=== PATIENT | male | born 1945 | race Caucasian/White ===

== ENCOUNTER 2019-12-28 19:00 | Emergency (ER) | payer MEDICARE ==
--- NOTE | 2019-12-28 20:49 | EDM.PDOC ---
ED HPI GENERAL MEDICAL PROBLEM - General Chief Complaint: Respiratory Problem Stated Complaint: S.O.B. Time Seen by Provider: 12/28/19 19:30 Source of Information: Reports: Patient, Old Records, RN Notes Reviewed History Limitations: Reports: No Limitations - History of Present Illness INITIAL COMMENTS - FREE TEXT/NARRATIVE: 74-year-old gentleman presents emergency department a complaint of difficulty breathing difficulty swallowing progressive weakness and fatigue. He has been dealing with this for 3 months started back in September has been evaluated by his primary care please see epic record for details of all the lab work that has been done the most remarkable finding is an RESHMA is positive at 6 sed rate is at 55 CRP also elevated at 6 CT scan of the chest shows groundglass opacities consistent with a pneumonitis. He has had COVID testing done tick panel testing done has initiated course of doxycycline pending results of tick panel this was subsequently stopped when the tick panel was negative. He lives alone up near [facility] he states his temperature has been averaging around 100 he has had some sputum production with a chronic cough no chest pain no nausea vomiting no other GI symptomology. He is also noticed some plaque-like lesions on the dorsal surface of both hands as well as faint redness around the eyes, complains of proximal muscle weakness difficulty getting out of a chair raising his arms above his head Generalized Pain Score (Numeric/FACES): 4 - Related Data Allergies Allergy/AdvReac Type Severity Reaction Status Date / Time No Known Allergies Allergy Verified 12/28/19 19:11 Home Meds: Home Meds Bimatoprost [Lumigan 0.03% Ophth Soln] 1 drop EYEBOTH BEDTIME 06/21/13 [History] Omeprazole 40 mg PO DAILY 03/19/18 [History] Naproxen Sodium [Aleve] 220 mg PO TID PRN 12/28/19 [History] traMADol [Ultram] 50 mg PO Q8HR PRN 12/28/19 [History] Past Medical History HEENT History: Reports: Impaired Vision Gastrointestinal History: Reports: GERD - Past Surgical History HEENT Surgical History: Reports: Tonsillectomy Social & Family History - Tobacco Use Smoking Status *Q: Never Smoker ED ROS GENERAL - Review of Systems Review Of Systems: See Below Constitutional: Reports: Fever, Chills, Weakness, Fatigue HEENT: Reports: Other (Difficulty swallowing) Respiratory: Reports: Shortness of Breath, Cough, Sputum Cardiovascular: Reports: Dyspnea on Exertion (Cannot do a flight of stairs before stopping and resting) GI/Abdominal: Reports: No Symptoms : Reports: No Symptoms Musculoskeletal: Reports: Joint Pain, Muscle Pain Skin: Reports: Lesions (Backs of hands) Neurological: Reports: No Symptoms ED EXAM, GENERAL - Physical Exam Exam: See Below Exam Limited By: No Limitations General Appearance: Alert, WD/WN, No Apparent Distress Respiratory/Chest: No Respiratory Distress Skin Exam: Other (?Gottron's papules dorsal surface hands) Course - Vital Signs Last Recorded V/S: Last Vital Signs Temp 98.6 F 12/28/19 19:22 Pulse 99 12/28/19 19:59 Resp 15 12/28/19 19:59 BP 144/78 H 12/28/19 19:59 Pulse Ox 100 12/28/19 19:22 - Orders/Labs/Meds Orders: Active Orders 24 hr Category Date Time Status Peripheral IV Care [RC] . DIRECTED Care 12/28/19 20:39 Ordered Sodium Chloride 0.9% [Saline Flush] Med 12/28/19 20:39 Ordered 10 ml FLUSH ASDIRECTED PRN Peripheral IV Insertion Adult [OM.PC] Urgent Oth 12/28/19 20:39 Ordered Medication Orders Sodium Chloride (Saline Flush) 10 ml FLUSH ASDIRECTED PRN PRN Reason: Keep Vein Open Meds: Medications Generic Name Dose Route Start Last Admin Trade Name Freq PRN Reason Stop Dose Admin Sodium Chloride 10 ml 12/28/19 20:39 Saline Flush FLUSH ASDIRECTED PRN Keep Vein Open Discontinued Medications Generic Name Dose Route Start Last Admin Trade Name Freq PRN Reason Stop Dose Admin Methylprednisolone Sodium Succinate 125 mg 12/28/19 20:39 Solu-Medrol IVPUSH 12/28/19 20:40 ONETIME ONE Departure - Departure Time of Disposition: 20:52 Disposition: DC/Tfer to Acute Hospital 02 Condition: Fair Clinical Impression: Proximal muscle weakness Dyspnea Qualifiers: Dyspnea type: shortness of breath Qualified Code(s): R06.02 - Shortness of breath; R06.00 - Dyspnea, unspecified; R06.01 - Orthopnea Dysphagia Qualifiers: Dysphagia type: unspecified Qualified Code(s): R13.10 - Dysphagia, unspecified - Discharge Information Referrals: Michael Lee MD [Primary Care Provider] - Sepsis Event Note (ED) - Evaluation Sepsis Screening Result: Possible Sepsis Risk - Focused Exam Vital Signs: Vital Signs Temp Pulse Resp BP Pulse Ox 12/28/19 19:59 99 15 144/78 H 12/28/19 19:22 98.6 F 105 H 22 H 160/78 H 100 12/28/19 19:18 98.6 F 1 L - My Orders Last 24 Hours: My Active Orders 12/28/19 20:39 Peripheral IV Care [RC] . DIRECTED Sodium Chloride 0.9% [Saline Flush] 10 ml FLUSH ASDIRECTED PRN Peripheral IV Insertion Adult [OM.PC] Urgent - Assessment/Plan Last 24 Hours: My Active Orders 12/28/19 20:39 Peripheral IV Care [RC] . DIRECTED Sodium Chloride 0.9% [Saline Flush] 10 ml FLUSH ASDIRECTED PRN Peripheral IV Insertion Adult [OM.PC] Urgent Plan: Assessment Acuity = acute Site and laterality = dyspnea with dysphagia with proximal muscle weakness Etiology = suspicious for underlying autoimmune disorder suspicious for dermatomyositis Manifestations = none Location of injury = Home Lab values = none Plan Call discussed case Dr. Maxwell emergency room physician at 2039 he kindly accept the patient in transport will be transported via EMS ground for further evaluation This note was dictated using [employer] voice recognition software please call with any questions on syntax or grammar.
[2019-12-28] MEDS: methylPREDNISolone Sodium Succinate 125 MG/2 ML SDV IVPUSH ONE (20:55)
[2019-12-28] MEDS: Sodium Chloride 0.9% 10 ML Syringe FLUSH PRN (20:56)
== END 2019-12-28 21:40 ==
LOC: JP.ED 19:00
DX: R06.02 Shortness of breath (principal); R06.01 Orthopnea; R13.10 Dysphagia, unspecified; M62.81 Muscle weakness (generalized); K21.9 Gastro-esophageal reflux disease without esophagitis; Z79.899 Other long term (current) drug therapy
CPT/HCPCS: 96374; 99285; J2930

== ENCOUNTER 2020-02-05 09:59 | Emergency (ER) | payer MEDICARE ==
--- NOTE | 2020-02-05 11:43 | EDM.PDOC ---
ED HPI GENERAL MEDICAL PROBLEM - General Chief Complaint: Gastrointestinal Problem Stated Complaint: CONSTIPATION, POSSIBLE LOW FLUIDS Time Seen by Provider: 02/05/20 11:43 Source of Information: Reports: Patient, Family, RN Notes Reviewed History Limitations: Reports: No Limitations - History of Present Illness INITIAL COMMENTS - FREE TEXT/NARRATIVE: Pedro presents today with complaints of constipation for 7 days. He has recently been diagnosed with pancreatic cancer and is undergoing chemotherapy. He has not had a good BM for 7 days. He reports liquid stools with occasional small hard bits of stool. He has taken stool softeners BID, tried use of dulcolax last night with prune juice. He reports he was instructed to avoid use of suppositories to avoid possible infection while under going chemotherapy. He reports abdominal pain with constipation. He denies fever, chills, nausea, vomiting or other concerns. Port in place. - Related Data Allergies Allergy/AdvReac Type Severity Reaction Status Date / Time No Known Allergies Allergy Verified 02/05/20 11:29 Home Meds: Home Meds Bimatoprost [Lumigan 0.03% Ophth Soln] 1 drop EYEBOTH BEDTIME 06/21/13 [History] Omeprazole 40 mg PO DAILY 03/19/18 [History] oxyCODONE 1 tab PO Q4HR 02/05/20 [History] predniSONE [Prednisone] 1 tab PO BID 02/05/20 [History] Past Medical History HEENT History: Reports: Impaired Vision Gastrointestinal History: Reports: GERD Oncologic (Cancer) History: Reports: Pancreatic Other Oncologic History: on chemo - Past Surgical History HEENT Surgical History: Reports: Tonsillectomy Social & Family History - Tobacco Use Tobacco Use Status *Q: Never Tobacco User ED ROS GENERAL - Review of Systems Review Of Systems: See Below Constitutional: Reports: Weakness HEENT: Reports: No Symptoms Respiratory: Reports: No Symptoms Cardiovascular: Reports: No Symptoms Endocrine: Reports: No Symptoms GI/Abdominal: Reports: Abdominal Pain, Constipation, Diarrhea, Decreased Appetite, Stool Incontinence (small amount of leaking liquid stool), Other (hemorrhoid). Denies: Bloody Stool, Hematemesis, Hematochezia, Nausea, Vomiting : Reports: No Symptoms Musculoskeletal: Reports: No Symptoms Skin: Reports: No Symptoms Neurological: Reports: No Symptoms Psychiatric: Reports: No Symptoms Hematologic/Lymphatic: Reports: No Symptoms ED EXAM, GI/ABD - Physical Exam Exam: See Below Exam Limited By: No Limitations General Appearance: Alert, WD/WN, Mild Distress Throat/Mouth: Normal Inspection, Normal Lips, Normal Gums, Normal Oropharynx, Normal Voice, No Airway Compromise Head: Atraumatic, Normocephalic Neck: Normal Inspection, Supple, Non-Tender, Full Range of Motion. No: Lymphadenopathy (R), Lymphadenopathy (L) Respiratory/Chest: No Respiratory Distress, Lungs Clear, Normal Breath Sounds, No Accessory Muscle Use, Chest Non-Tender. No: Crackles, Rales, Rhonchi, Wheezing, Accessory Muscle Use, Retractions, Splinting Cardiovascular: Normal Peripheral Pulses, Regular Rate, Rhythm, No Edema, No Gallop, No Murmur, No Rub GI/Abdominal Exam: Normal Bowel Sounds, Soft, Distended, Tender (mild tenderness and distension to diffuse abdomen) Rectal (Males) Exam: Normal Rectal Tone, Fecal Impaction, Tenderness, Other (hemorrhoid) Back Exam: Normal Inspection, Full Range of Motion. No: CVA Tenderness (R), CVA Tenderness (L) Extremities: Normal Inspection, Normal Range of Motion, Non-Tender, No Pedal Edema, Normal Capillary Refill Neurological: Alert, Oriented, Normal Cognition, Normal Gait, Normal Reflexes, No Motor/Sensory Deficits Psychiatric: Normal Affect, Normal Mood Skin Exam: Warm, Dry, Intact, Normal Color, No Rash Lymphatic: No Adenopathy Course - Vital Signs Last Recorded V/S: Last Vital Signs Temp 35.9 C L 02/05/20 11:39 Pulse 104 H 02/05/20 11:39 Resp 18 02/05/20 11:39 BP 124/65 02/05/20 11:39 Pulse Ox 89 L 02/05/20 11:39 - Orders/Labs/Meds Orders: Active Orders 24 hr Category Date Time Status Abdomen 2V AP Flat Upright [CR] Stat Exams 02/05/20 13:17 Taken Saline Lock Insert [OM.PC] Routine Oth 02/05/20 12:00 Ordered Labs: Laboratory Tests 02/05/20 Range/Units 12:00 Sodium 131 L (140-148) mmol/L Potassium 3.8 (3.6-5.2) mmol/L Chloride 98 L (100-108) mmol/L Carbon Dioxide 27 (21-32) mmol/L Anion Gap 9.8 (5.0-14.0) mmol/L BUN 30 H (7-18) mg/dL Creatinine 0.8 (0.8-1.3) mg/dL Est Cr Clr Drug Dosing 74.59 mL/min Estimated GFR (MDRD) > 60 (>60) Glucose 127 H (74-106) mg/dL Calcium 7.9 L (8.5-10.1) mg/dL Meds: Medications Discontinued Medications Generic Name Dose Route Start Last Admin Trade Name Freq PRN Reason Stop Dose Admin Heparin Sodium (Porcine) 500 units 02/05/20 14:41 02/05/20 14:45 Heparin Lock Flush 100 Units/Ml FLUSH 500 units ASDIRECTED PRN Administration Other Heparin Sodium (Porcine) Confirm 02/05/20 14:42 Heparin Lock Flush 100 Units/Ml Administered 02/05/20 14:43 Dose 500 units .ROUTE .STK-MED ONE Lactated Ringer's 1,000 mls @ 500 mls/hr 02/05/20 12:00 02/05/20 12:16 Ringers, Lactated IV 500 mls/hr ASDIRECTED AMARILYS Administration Lidocaine HCl 10 ml 02/05/20 12:00 02/05/20 12:16 Xylocaine 2% Jelly MUCMEM 02/05/20 12:01 10 ml ONETIME ONE Administration Magnesium Citrate 296 ml 02/05/20 13:18 02/05/20 13:50 Citrate Of Magnesia PO 02/05/20 13:19 296 ml ONETIME ONE Administration Mineral Oil 133 ml 02/05/20 12:01 02/05/20 12:17 Mineral Oil RECTAL 02/05/20 12:02 133 ml ONETIME ONE Administration Sodium Chloride 10 ml 02/05/20 12:00 02/05/20 12:19 Saline Flush FLUSH 10 ml ASDIRECTED PRN Administration Keep Vein Open Administer 130ml enema only. - Radiology Interpretation Free Text/Narrative:: Flat and upright abdominal x-rays reviewed, noted constipation. Radiologist read pending. - Re-Assessments/Exams Free Text/Narrative Re-Assessment/Exam: 02/05/20 13:04 Very small results from mineral oil enema. We will complete flat and upright abdominal x-ray. 02/05/20 13:49 Discussed x-ray results with patient, he would like to try a tap water enema. 02/05/20 14:20 Small results from tap water enema. Patient would like to be discharged to home, he will try use of magnesium citrate. Return for any worsening, issues or concerns. Departure - Departure Time of Disposition: 14:43 Disposition: Home, Self-Care 01 Condition: Good Clinical Impression: Constipation due to opioid therapy, Hemorrhoid - Discharge Information Instructions: Constipation, Adult, [id number] Referrals: Michael Lee MD [Primary Care Provider] - Forms: ED Department Discharge Additional Instructions: You have been evaluated and treated for constipation. One mineral oil fleets enema with small results. Tap water enema with small results Abdominal x-ray showed mild constipation. Push fluids to stay hydrated, drink gatorade to help with low sodium level. Take magnesium citrate 1/2 bottle when home, wait 45minutes then take the rest. Take miralax one capful twice per day until constipation resolves then may daily once a day. May use preparation H to hemorrhoid to help with pain. Follow up with primary in 7 to 10 days or as needed. Return for any worsening, issues or concerns. Sepsis Event Note (ED) - Evaluation Sepsis Screening Result: No Definite Risk - Focused Exam Vital Signs: Vital Signs Temp Pulse Resp BP Pulse Ox 02/05/20 11:39 35.9 C L 104 H 18 124/65 89 L 02/05/20 11:12 35.9 C L 104 H 18 124/65 89 L - My Orders Last 24 Hours: My Active Orders 02/05/20 12:00 Saline Lock Insert [OM.PC] Routine 02/05/20 13:17 Abdomen 2V AP Flat Upright [CR] Stat - Assessment/Plan Last 24 Hours: My Active Orders 02/05/20 12:00 Saline Lock Insert [OM.PC] Routine 02/05/20 13:17 Abdomen 2V AP Flat Upright [CR] Stat Assessment:: Constipation due to opioid therapy Hemorrhoid Plan: Patient evaluated and treated for constipation. One mineral oil fleets enema with small results. Tap water enema with small results Abdominal x-ray showed mild constipation. Push fluids to stay hydrated, drink gatorade to help with low sodium level. Take magnesium citrate 1/2 bottle when home, wait 45minutes then take the rest. Take miralax one capful twice per day until constipation resolves then may daily once a day. Follow up with primary in 7 to 10 days or as needed. Return for any worsening, issues or concerns.
[2020-02-05] MEDS ORDERED: Lidocaine 2% Jelly 10 ML Urojet MUCMEM ONE (12:00)
[2020-02-05] MEDS ORDERED: Lactated Ringers 1,000 ML IV SCH (12:00)
[2020-02-05] MEDS ORDERED: Sodium Chloride 0.9% 10 ML Syringe FLUSH PRN (12:00)
[2020-02-05] MEDS ORDERED: Magnesium Citrate Solution 296 ML Bottle PO ONE (13:18)
--- NOTE | 2020-02-07 09:16 | CR ---
Abdomen 2V AP Flat Upright CLINICAL HISTORY: Constipation FINDINGS: Small chest gas pattern is nonacute. No free air is identified. There is significant retained stool throughout the colon. There are patchy predominantly interstitial infiltrates in both lung bases. IMPRESSION: Significant fecal retention Nonacute gas pattern Patchy bilateral lower lobe infiltrates
== END 2020-02-05 15:02 | disposition home or self-care (01) ==
LOC: JP.ED 09:59
DX: K59.03 Drug induced constipation (principal); T40.2X5A Adverse effect of other opioids, initial encounter; K64.9 Unspecified hemorrhoids; K21.9 Gastro-esophageal reflux disease without esophagitis; C25.9 Malignant neoplasm of pancreas, unspecified; Z79.899 Other long term (current) drug therapy
CPT/HCPCS: 36415; 74019; 80048; 99283; A9270; J1642; J7120

== ENCOUNTER 2020-02-15 17:40 | Emergency (ER) | payer MEDICARE ==
[2020-02-15] MEDS ORDERED: Sodium Chloride 0.9% 10 ML Syringe FLUSH PRN (18:30)
[2020-02-15] MEDS ORDERED: Levofloxacin/Dextrose 5%-Water 750 MG in Premix Bag 1 BAG IV ONE (20:08)
--- NOTE | 2020-02-15 21:10 | EDM.PDOC ---
ED HPI GENERAL MEDICAL PROBLEM - General Chief Complaint: Fever Stated Complaint: HIGH TEMP AFTER INFUSION Time Seen by Provider: 02/15/20 18:29 Source of Information: Reports: Patient History Limitations: Reports: No Limitations - History of Present Illness INITIAL COMMENTS - FREE TEXT/NARRATIVE: Pedro is a 74-year-old male presenting to the ED for evaluation of recurrent fevers. Patient underwent his chemotherapy infusion today for his stage IV pancreatic cancer. He was seen by oncology who was alarmed about his fever and started him on Levaquin 500 mg daily. The patient again spiked a fever to 102.8 F and had been experiencing a little bit more shortness of breath and some sharp, stabbing left chest pain prompting him to come in for evaluation. The chest pain has predominantly been sharp and worsens with inspiration and movement. It is in the left anterior lower chest. The patient has a baseline of a possible lung infection either fungal or tickborne in nature. This was found during his evaluation where they discovered his pancreatic cancer. He is scheduled to see a family dinner service specialist on Friday. In addition to the chest pain and shortness of breath, the patient also has had generalized fatigue, polyarthralgias, and diaphoresis. joint pain Pain Score (Numeric/FACES): 2 - Related Data Allergies Allergy/AdvReac Type Severity Reaction Status Date / Time No Known Allergies Allergy Verified 02/15/20 18:18 Home Meds: Home Meds Bimatoprost [Lumigan 0.03% Ophth Soln] 1 drop EYEBOTH BEDTIME 06/21/13 [History] Omeprazole 40 mg PO DAILY 03/19/18 [History] oxyCODONE 1 tab PO Q4HR 02/05/20 [History] predniSONE [Prednisone] 10 mg PO BID 02/05/20 [History] Levofloxacin 500 mg PO DAILY 02/15/20 [History] Prochlorperazine [Compazine] 10 mg PO ASDIRECTED 02/15/20 [History] levoFLOXacin [Levaquin] 750 mg PO DAILY 7 Days #6 tab 02/15/20 [Rx] Past Medical History HEENT History: Reports: Impaired Vision Cardiovascular History: Reports: None Respiratory History: Reports: None Gastrointestinal History: Reports: GERD Oncologic (Cancer) History: Reports: Pancreatic Other Oncologic History: on chemo - Infectious Disease History Infectious Disease History: Reports: C-Difficile, Measles, Mumps - Past Surgical History HEENT Surgical History: Reports: Tonsillectomy Social & Family History - Tobacco Use Tobacco Use Status *Q: Former Tobacco User Used Tobacco, but Quit: Yes Month/Year Tobacco Last Used: 50 years ago - Caffeine Use Caffeine Use: Reports: Coffee Caffeine Use Comment: occ - Recreational Drug Use Recreational Drug Use: No ED ROS GENERAL - Review of Systems Review Of Systems: See Below Constitutional: Reports: Fever, Chills, Weakness, Fatigue, Diaphoresis, Decreased Appetite HEENT: Reports: Throat Pain Respiratory: Reports: Shortness of Breath, Pleuritic Chest Pain (Left lower chest). Denies: Cough Cardiovascular: Reports: Chest Pain (Left lower chest, sharp, stabbing and worsens with inspiration.) Endocrine: Reports: No Symptoms GI/Abdominal: Reports: Abdominal Pain (Mild epigastric) : Reports: No Symptoms Musculoskeletal: Reports: Joint Pain (Multiple joints ache including the shoulders, hips, elbows, and knees.) Skin: Reports: No Symptoms Neurological: Reports: No Symptoms Psychiatric: Reports: No Symptoms Hematologic/Lymphatic: Reports: No Symptoms, Other (Patient is undergoing chemotherapy) Immunologic: Reports: No Symptoms ED EXAM, SEPSIS - Physical Exam Exam: See Below Exam Limited By: No Limitations General Appearance: Alert, Mild Distress, Other (Cachectic) Eye Exam: Bilateral Eye: EOMI, PERRL Nose: Normal Inspection Throat/Mouth: Normal Lips, Pharyngeal Erythema. No: Tongue Swelling, Tonsillar Erythema, Tonsillar Exudate, Tonsillar Swelling Head: Atraumatic, Normocephalic Neck: Normal Inspection, Supple, Non-Tender, Full Range of Motion Respiratory/Chest: Crackles (Right lower chest), Rhonchi (Bibasilar worse on the right than the left) Cardiovascular: Normal Peripheral Pulses, Regular Rate, Rhythm, No Edema, No JVD, No Murmur Peripheral Pulses: 2+: Radial (L), Radial (R), Posterior Tibial (L), Posterior Tibial (R) GI/Abdominal Exam: Normal Bowel Sounds, Soft, Non-Tender, No Organomegaly, No Distention, No Abnormal Bruit (Male) Exam: Deferred Rectal (Males) Exam: Deferred Back: Normal Inspection, Full Range of Motion Extremities: Normal Inspection, Normal Range of Motion, Non-Tender, No Pedal Edema, Normal Capillary Refill Neurological: Alert, Oriented, Normal Cognition, No Motor/Sensory Deficits Psychiatric: Normal Affect, Normal Mood Skin: Warm, Dry, Other (Mildly diminished skin turgor) Lymphatic: Bilateral: No Adenopathy Course - Vital Signs Last Recorded V/S: Last Vital Signs Temp 37.2 C 02/15/20 20:26 Pulse 124 H 02/15/20 18:15 Resp 18 02/15/20 18:15 BP 129/54 L 02/15/20 18:15 Pulse Ox 93 L 02/15/20 18:15 - Orders/Labs/Meds Orders: Active Orders 24 hr Category Date Time Status Chest 1V Frontal [CR] Stat Exams 02/15/20 19:17 Taken CORONAVIRUS COVID-19 [facility]IE [MOLEC] Urgent Lab 02/15/20 21:29 Ordered CULTURE BLOOD [BC] Urgent Lab 02/15/20 18:50 Received CULTURE BLOOD [BC] Urgent Lab 02/15/20 18:50 Received Heparin Sodium [Heparin Lock Flush 100 Units/ML] Med 02/15/20 20:08 Active 500 units FLUSH ASDIRECTED PRN Sodium Chloride 0.9% [Saline Flush] Med 02/15/20 18:30 Active 10 ml FLUSH ASDIRECTED PRN Blood Culture x2 Reflex Set [OM.PC] Urgent Oth 02/15/20 18:30 Ordered Saline Lock Insert [OM.PC] Routine Oth 02/15/20 18:30 Ordered Medication Orders Heparin Sodium (Porcine) (Heparin Lock Flush 100 Units/Ml) 500 units FLUSH ASDIRECTED PRN PRN Reason: IV Use Sodium Chloride (Saline Flush) 10 ml FLUSH ASDIRECTED PRN PRN Reason: Keep Vein Open Labs: Laboratory Tests 02/15/20 02/15/20 02/15/20 Range/Units 18:30 18:40 18:40 WBC (4.5-11.0) K/uL RBC (4.30-5.90) M/uL Hgb (12.0-15.0) g/dL Hct (40.0-54.0) % MCV (80-98) fL MCH (27-31) pg MCHC (32-36) % Plt Count (150-400) K/uL Neut % (Auto) (36-66) % Lymph % (Auto) (24-44) % [place] % (Auto) (2-6) % Eos % (Auto) (2-4) % Baso % (Auto) (0-1) % Sodium 133 L (140-148) mmol/L Potassium 4.0 (3.6-5.2) mmol/L Chloride 100 (100-108) mmol/L Carbon Dioxide 25 (21-32) mmol/L Anion Gap 12.0 (5.0-14.0) mmol/L BUN 23 H (7-18) mg/dL Creatinine 0.9 (0.8-1.3) mg/dL Est Cr Clr Drug Dosing 64.51 mL/min Estimated GFR (MDRD) > 60 (>60) Glucose 122 H (74-106) mg/dL Lactic Acid 1.9 (0.4-2.0) mmol/L Calcium 7.8 L (8.5-10.1) mg/dL Total Bilirubin 0.2 (0.2-1.0) mg/dL AST 27 (15-37) U/L ALT 24 (12-78) U/L Alkaline Phosphatase 80 (46-116) U/L Total Protein 6.4 (6.4-8.2) g/dL Albumin 2.0 L (3.4-5.0) g/dL Globulin 4.4 H (2.3-3.5) g/dL Albumin/Globulin Ratio 0.5 L (1.2-2.2) Urine Color Yellow (YELLOW) Urine Appearance Slightly cloudy A (CLEAR) Urine pH 6.0 (5.0-8.0) Ur Specific [place] 1.025 (1.008-1.030) Urine Protein Negative (NEGATIVE) mg/dL Urine Glucose (UA) Negative (NEGATIVE) mg/dL Urine Ketones Negative (NEGATIVE) mg/dL Urine Occult Blood Negative (NEGATIVE) Urine Nitrite Negative (NEGATIVE) Urine Bilirubin Negative (NEGATIVE) Urine Urobilinogen 0.2 (0.2-1.0) EU/dL Ur Leukocyte Esterase Negative (NEGATIVE) Urine RBC 0-5 (0-5) Urine WBC 0-5 (0-5) Ur Epithelial Cells Rare Amorphous Sediment Not seen Urine Bacteria Rare Urine Mucus Many 02/14/ Range/Units 18:45 WBC 18.2 H (4.5-11.0) K/uL RBC 3.86 L (4.30-5.90) M/uL Hgb 11.4 L (12.0-15.0) g/dL Hct 34.7 L (40.0-54.0) % MCV 90 (80-98) fL MCH 30 (27-31) pg MCHC 33 (32-36) % Plt Count 515 H (150-400) K/uL Neut % (Auto) 95 H (36-66) % Lymph % (Auto) 4 L (24-44) % [place] % (Auto) 1 L (2-6) % Eos % (Auto) 0 L (2-4) % Baso % (Auto) 0 (0-1) % Sodium (140-148) mmol/L Potassium (3.6-5.2) mmol/L Chloride (100-108) mmol/L Carbon Dioxide (21-32) mmol/L Anion Gap (5.0-14.0) mmol/L BUN (7-18) mg/dL Creatinine (0.8-1.3) mg/dL Est Cr Clr Drug Dosing mL/min Estimated GFR (MDRD) (>60) Glucose (74-106) mg/dL Lactic Acid (0.4-2.0) mmol/L Calcium (8.5-10.1) mg/dL Total Bilirubin (0.2-1.0) mg/dL AST (15-37) U/L ALT (12-78) U/L Alkaline Phosphatase (46-116) U/L Total Protein (6.4-8.2) g/dL Albumin (3.4-5.0) g/dL Globulin (2.3-3.5) g/dL Albumin/Globulin Ratio (1.2-2.2) Urine Color (YELLOW) Urine Appearance (CLEAR) Urine pH (5.0-8.0) Ur Specific [place] (1.008-1.030) Urine Protein (NEGATIVE) mg/dL Urine Glucose (UA) (NEGATIVE) mg/dL Urine Ketones (NEGATIVE) mg/dL Urine Occult Blood (NEGATIVE) Urine Nitrite (NEGATIVE) Urine Bilirubin (NEGATIVE) Urine Urobilinogen (0.2-1.0) EU/dL Ur Leukocyte Esterase (NEGATIVE) Urine RBC (0-5) Urine WBC (0-5) Ur Epithelial Cells Amorphous Sediment Urine Bacteria Urine Mucus Meds: Medications Generic Name Dose Route Start Last Admin Trade Name Freq PRN Reason Stop Dose Admin Heparin Sodium (Porcine) 500 units 02/15/20 20:08 Heparin Lock Flush 100 Units/Ml FLUSH ASDIRECTED PRN IV Use Sodium Chloride 10 ml 02/15/20 18:30 Saline Flush FLUSH ASDIRECTED PRN Keep Vein Open Discontinued Medications Generic Name Dose Route Start Last Admin Trade Name Freq PRN Reason Stop Dose Admin Heparin Sodium (Porcine) Confirm 02/15/20 19:25 02/15/20 19:41 Heparin Lock Flush 100 Units/Ml Administered 02/15/20 19:26 500 units Dose Administration 500 units .ROUTE .STK-MED ONE Levofloxacin/Dextrose 750 mg/ 150 mls @ 100 mls/hr 02/15/20 20:08 02/15/20 20:15 Premix IV 02/15/20 21:37 100 mls/hr ONETIME ONE Administration - Re-Assessments/Exams Free Text/Narrative Re-Assessment/Exam: Pedro is a 74-year-old male presenting to the ED with a multitude of complaints but the biggest concern is he just had an infusion with chemotherapy for pancreatic cancer and he developed a fever tonight to 102.8 F. The patient has been having fevers on and off for the last several days. He states that yesterday he started to develop sharp, stabbing chest pain in the left anterior lower chest that seems to worsen with movement and deep inspiration. He has also had some increasing shortness of breath and fatigue which she attributed to his chemotherapy. The patient has a pulmonology follow-up next Friday for a possible chronic infection in the lung thought to either be due to tickborne illness or a fungal infection. His exam today is worrisome for bibasilar rhonchi with crackles in the right base. Labs were obtained showing a CBC with a leukocytosis of 18.2 and a left shift of 17.1 neutrophils. A chest x-ray is obtained showing significant change in the right base with an infiltrate that appears to be developing. He still has scattered fibrosis or infiltrate in the left base as well when compared to his previous CT of the chest on 07 December 2019. The right infiltrate is new when compared to this previous study. This is likely a developing pneumonia. The patient was seen by his oncologist today who was concerned about the new fever and gave the patient a prescription for Levaquin 500 mg which she has not yet started. With the development of the infiltrate on the right, I started him with Levaquin 750 IV in the ED. In addition I will up his home-going medication to 750 mg a day for the next 6 days. Again the patient is having a pulmonary consultation on Friday with a documentation analyst. Indications to return to the ED were discussed. The patient will continue to try to push fluids and dense calorie foods to try to keep up his caloric intake. All questions were answered and the patient was suitable for discharge in satisfactory condition. We did not repeat the Covid test as he had had 2 Covid tests in December that were negative. Departure - Departure Time of Disposition: 21:45 Disposition: Home, Self-Care 01 Condition: Fair Clinical Impression: Pneumonia of right lower lobe due to infectious organism Pancreatic cancer Qualifiers: Pancreatic malignancy location: unspecified Qualified Code(s): C25.9 - Malignant neoplasm of pancreas, unspecified - Discharge Information *PRESCRIPTION DRUG MONITORING PROGRAM REVIEWED*: Not Applicable *COPY OF PRESCRIPTION DRUG MONITORING REPORT IN PATIENT LIYAH: Not Applicable Prescriptions: levoFLOXacin [Levaquin] 750 mg PO DAILY 7 Days #6 tab Instructions: Community-Acquired Pneumonia, Adult Referrals: Michael Lee MD [Primary Care Provider] - Forms: ED Department Discharge Care Plan Goals: We have initiated antibiotics for your right lower lobe pneumonia. I am going to increase your Levaquin from 500 mg to 750 mg a day. Your new prescription can be filled in the morning. Should you develop any worsening of your shortness of breath, we need to see you immediately back in the emergency room. Sepsis Event Note (ED) - Evaluation Sepsis Screening Result: Possible Sepsis Risk - Focused Exam Vital Signs: Vital Signs Temp Pulse Resp BP Pulse Ox 02/15/20 20:26 37.2 C 02/15/20 18:15 39.1 C H 124 H 18 129/54 L 93 L 02/15/20 18:07 39.1 C H 124 H 18 129/54 L 93 L - Problem List & Annotations (1) Pancreatic cancer SNOMED Code(s): 659894695 Code(s): C25.9 - MALIGNANT NEOPLASM OF PANCREAS, UNSPECIFIED Status: Chronic Priority: Medium Current Visit: Yes Qualifiers: Pancreatic malignancy location: unspecified Qualified Code(s): C25.9 - Malignant neoplasm of pancreas, unspecified (2) Pneumonia of right lower lobe due to infectious organism SNOMED Code(s): 633217612, 594784562 Code(s): J18.9 - PNEUMONIA, UNSPECIFIED ORGANISM Status: Acute Priority: High Current Visit: Yes - Problem List Review Problem List Initiated/Reviewed/Updated: Yes - My Orders Last 24 Hours: My Active Orders 02/15/20 18:30 Sodium Chloride 0.9% [Saline Flush] 10 ml FLUSH ASDIRECTED PRN Blood Culture x2 Reflex Set [OM.PC] Urgent Saline Lock Insert [OM.PC] Routine 02/15/20 18:50 CULTURE BLOOD [BC] Urgent CULTURE BLOOD [BC] Urgent 02/15/20 19:17 Chest 1V Frontal [CR] Stat 02/15/20 20:08 Heparin Sodium [Heparin Lock Flush 100 Units/ML] 500 units FLUSH ASDIRECTED PRN 02/15/20 21:29 CORONAVIRUS COVID-19 [facility] [MOLEC] Urgent - Assessment/Plan Last 24 Hours: My Active Orders 02/15/20 18:30 Sodium Chloride 0.9% [Saline Flush] 10 ml FLUSH ASDIRECTED PRN Blood Culture x2 Reflex Set [OM.PC] Urgent Saline Lock Insert [OM.PC] Routine 02/15/20 18:50 CULTURE BLOOD [BC] Urgent CULTURE BLOOD [BC] Urgent 02/15/20 19:17 Chest 1V Frontal [CR] Stat 02/15/20 20:08 Heparin Sodium [Heparin Lock Flush 100 Units/ML] 500 units FLUSH ASDIRECTED PRN 02/15/20 21:29 CORONAVIRUS COVID-19 L[facility]LIE [MOLEC] Urgent
--- NOTE | 2020-02-16 09:22 | CR ---
CHEST: Portable 02/15/2020 at 7:31 PM CLINICAL HISTORY:Fever COMPARISON:October 2019 FINDINGS: Patient has patchy opacities in both lower lung lira. Some of this is chronic as is seen on prior chest x-ray and prior chest CT from November 2019. Density in the right lower lobe has increased. Mid and upper lung markings have increased. There has been interval placement of a [id number] catheter. Tip is in the superior vena cava atrial junction region. IMPRESSION: Chronic changes in both lung bases described on prior studies Superimposed increased density in the right lower lobe as well as increased lung markings in the mid and upper lung lira suggest superimposed acute process such as pneumonitis, especially considering the history of fever.
== END 2020-02-15 22:00 | disposition home or self-care (01) ==
LOC: JP.ED 17:40
DX: J18.9 Pneumonia, unspecified organism (principal); C25.9 Malignant neoplasm of pancreas, unspecified; K21.9 Gastro-esophageal reflux disease without esophagitis; Z87.891 Personal history of nicotine dependence; Z79.899 Other long term (current) drug therapy; Z20.828 Contact with and (suspected) exposure to other viral communicable diseases
CPT/HCPCS: 36415; 71045; 80053; 81001; 83605; 85025; 87040; 96365; 99285; J1642; J1956; U0002; 99284